=== PATIENT | female | born 1965 | race Caucasian/White ===

== ENCOUNTER → 2021-07-14 | Outpatient (CLI) | payer MEDICARE, OTHER ==
--- NOTE | 2021-07-14 15:24 | US ---
EXAMINATION TYPE: US carotid duplex BILAT DATE OF EXAM: 07/14/2021 COMPARISON: NONE CLINICAL HISTORY: I51.7 Cardiomegaly. Smoker x 40 years EXAM MEASUREMENTS: RIGHT: Peak Systolic Velocity (PSV) cm/sec ----- Right CCA: 87.9 ----- Right ICA: 84.1 ----- Right ECA: 104.3 ICA/CCA ratio: 1.0 RIGHT: End Diastole cm/sec ----- Right CCA: 32.3 ----- Right ICA: 33.6 ----- Right ECA: 26.0 LEFT: Peak Systolic Velocity (PSV) cm/sec ----- Left CCA: 82.9 ----- Left ICA: 87.9 ----- Left ECA: 128.7 ICA/CCA ratio: 1.1 LEFT: End Diastole cm/sec ----- Left CCA: 29.8 ----- Left ICA: 33.6 ----- Left ECA: 20.4 VERTEBRALS (direction of flow): Right Vertebral: Antegrade Left Vertebral: Antegrade Rhythm: Normal Abnormally elevated PSV is noted proximal Left ECA. Mild intimal wall changes are noted at bilateral carotid bifurcation. IMPRESSION: 1. Atheromatous plaquing without significant flow-limiting stenosis, nor internal carotid arteries. 2. There is some elevation of the velocity within the left external carotid artery. Criteria for Assigning % of Stenosis / Diameter reduction (Estimation based on the indirect measurements of the internal carotid artery velocities (ICA PSV). 1. Normal (no stenosis)=ICA PSV < 125 cm/s: ratio < 2.0: ICA EDV<40 cm/s. 2. Less than 50% stenosis=ICA PSV < 125 cm/s: ratio < 2.0: ICA EDV<40 cm/s. 3. 50 to 69% stenosis=ICA PSV of 125 to 230 cm/s: ration 2.0 ? 4.0: ICA EDV 40-100 cm/s. 4. Greater than 70% stenosis to near occlusion= ICA PSV > 230 cm/s: ratio > 4.0: ICA EDV > 100 cm/s. 5. Near occlusion= ICA PSV velocities may be low or undetectable: variable ratio and ICA EDV. 6. Total occlusion=unable to detect flow.
--- NOTE | 2021-07-14 19:37 | ECHOF ---
Referral Reason:I51.7 Cargiomegaly MEASUREMENTS -------- HEIGHT: 160.0 cm WEIGHT: 63.5 kg BP: RVIDd: 2.9 cm (< 3.3) IVSd: 1.0 cm (0.6 - 1.1) LVIDd: 4.5 cm (3.9 - 5.3) LVPWd: 0.9 cm (0.6 - 1.1) IVSs: 1.2 cm LVIDs: 2.9 cm LVPWs: 1.4 cm LAESV Index (A-L): 14.28 ml/m Ao Diam: 2.8 cm (2.0 - 3.7) AV Cusp: 1.4 cm (1.5 - 2.6) MV EXCURSION: 19.523 mm (> 18.000) MV EF SLOPE: 63 mm/s (70 - 150) EPSS: 0.8 cm MV E Rob: 0.57 m/s MV DecT: 235 ms MV A Rob: 0.71 m/s MV E/A Ratio: 0.80 RAP: 5.00 mmHg RVSP: 15.61 mmHg FINDINGS -------- Sinus rhythm. This was a technically adequate study. The left ventricular size is normal. Left ventricular wall thickness is normal. Overall left vent ricular systolic function is normal with, an EF between 55 - 60 %. The right ventricle is normal in size. Normal LA size by volume 22+/-6 ml/m2. The right atrial size is normal. The aortic valve is trileaflet, and appears structurally normal. No aortic stenosis or regurgitation. The mitral valve is normal. Mild mitral regurgitation is present. The tricuspid valve appears structurally normal. Mild tricuspid regurgitation present. Right vent ricular systolic pressure is normal at < 35 mmHg. There is no pulmonic regurgitation present. The aortic root size is normal. There is no pericardial effusion. CONCLUSIONS -------- 1. Overall left ventricular systolic function is normal with, an EF between 55 - 60 %. 2. Normal LA size by volume 22+/-6 ml/m2. 3. The aortic valve is trileaflet, and appears structurally normal. No aortic stenosis or regurgitati on. 4. The mitral valve is normal. 5. Mild tricuspid regurgitation present. 6. There is no pericardial effusion. LOW [employer]ER TENDER: Ira Melissa RDCS
== END | disposition home or self-care (01) ==
LOC: RADUSWWP 13:48 → MERGE 14:20
PROVIDERS: ATTEND Family Medicine
DX: I67.2 Cerebral atherosclerosis (principal)
CPT/HCPCS: 93306; 93880

== ENCOUNTER → 2022-01-23 | Outpatient (CLI) | payer MEDICARE, OTHER ==
--- NOTE | 2022-01-23 20:40 | MR ---
EXAMINATION TYPE: MR foot RT wo con DATE OF EXAM: 01/23/2022 COMPARISON: No radiographic correlation available HISTORY: 56-year-old female Pain in right foot, 4th digit pain TECHNIQUE: Multiplanar, multisequence images of the right foot were obtained without IV contrast. FINDINGS: There is intense edema with corresponding marrow replacement involving the fourth distal phalanx. Ass ociated soft tissue swelling greater along the distal aspect of the toe. No additional suspicious bone marrow replacement or marrow edema. Small effusion in the posterior tibiotalar and subtalar joints likely physiologic. Subtalar joint marcial ears aligned. Achilles tendon appears intact. There is some mild edema within the calcaneal plantar f at pad which is nonspecific. No significant thickening origin of the medial plantar fascia. There is a mild to moderate tenosynovial fluid along the flexor hallucis and flexor digitorum longus at the mid to hindfoot near the level of the knot of Ryan, probably physiologic. The Lisfranc ligament appears intact. IMPRESSION: Intense edema with corresponding low T1 signal involving the fourth distal phalanx. Associated soft t issue swelling. Suspect an occult, nondisplaced fracture given the signal changes. Radiographic corre lation recommended. If pain does not improve as expected, follow-up high-resolution, small field-of-v iew MRI can be performed.
== END | disposition home or self-care (01) ==
LOC: RADMRIMAIN 11:19
PROVIDERS: ATTEND Orthopaedic Surgery
DX: S92.504D Nondisplaced unspecified fracture of right lesser toe(s), subsequent encounter for fracture with routine healing (principal); M79.671 Pain in right foot; X58.XXXD Exposure to other specified factors, subsequent encounter

== ENCOUNTER → 2023-03-31 | Outpatient (CLI) | payer MEDICARE, OTHER ==
[2023-03-31 12:44] VITALS: BP 162/96; PULSE 90; RESP 18; TEMP 98.1
--- NOTE | 2023-03-31 14:32 | P.PAINPG ---
PQRS Measure Charge Sheet Comment: HISTORY OF PRESENT ILLNESS: 57 yr old female as a referral from Dr Schmitz presents today w severe and chronic neck pain secondary to DDD, spondylosis and facet arthropathy without myelopathy for evaluation. Pt states pain level is provoked at 7 /10 in intensity, constant, localized in the mid to lower cervical spine, sore in character w shooting pain towards the L shoulder Pain is provoked by flexion and rotation. Pain is alleviated by medications (Flexeril, Aleve), injections in the past (TPIs w Dr Jameson, MARIANN C6-7), heat, PT x 40 wks in 2020, repositioning and rest. PMH: Hyperlipidemia, MDD PSH: BL Coronary Angiogram (2022), Lumbar Surgery, Vocal Cord Surgery SH: Daily tobacco use, Daily ETOH use, No illicit drug use FH: Non contributory All: See list Meds: See list REVIEW OF ORGAN SYSTEMS: CONSTITUTIONAL: No fevers or chills. No recent weight loss. NEUROLOGICAL: + numbness and tingling along the distal extremities. No seizure disorders or headaches. MUSCULOSKELETAL: + pain PSYCHIATRIC: Denies current depression or suicidal thoughts. Physical Examinations : Constitutional : Cooperative , not in acute distress . Neurologic : Cranial nerve II to XII intact. No focal neurological deficits. Psychiatric : alert & oriented x 3. Matching mood & appropriate affect. Judgment & insight intact. Musculoskeletal : Cervical Spine Motor strength in the deltoid and biceps: Normal right side. Normal Left side Motor strength biceps and the wrist extensors: Normal right side . Normal left side Motor strength in the triceps muscle: Normal right side. Normal left side Deep tendon reflexes: Normal at the biceps. Normal at Brachioradialis. Normal at triceps Vertebral body tenderness to deep palpation over C6 Cervical facet loading test: positive bilaterally Spurling test: positive bilaterally Neck distraction test: positive bilaterally Rachel sign: positive bilaterally Lumbar spine Motor strength lower extremities ,thigh and legs 5/5 Right side , 5/5 Left side Deep tendon reflexes : Normal Knee Jerk. Normal Ankle Jerk Vertebral body tenderness over Cook Test positive Lumbar facet Loading Test: positive Right / positive Left Range of motion of the lumbar spine Flexion 30 degrees, extension 10 degrees Straight Leg Raise test: Left/ Right positive at degree Tai test: positive right / positive left. Severe tenderness over the Sacroiliac joint on the Right / Left sides Gaenslen test: positive bilaterally Seated flexion test: positive bilaterally. Sacral spine : Severe tenderness over the Sacroiliac joint: right side / left side Range of motion: Flexion of the lumbar spine <60 degrees Range of motion: Extension of the lumbar spine <20 degrees Gaenslen's Test positive Esequiel's Test positive Tai test: positive right side / left side Thigh Thrust Test Sacral Thrust Test Imaging: MRI non contrast of the cervical spine from 08/14/21 reviewed Assessment/ Plan : Cervical DDD Recommendation of PT x 6 wks re: M50.30. May return to clinic for a reevaluation. All questions answered. I have spent greater than 30 minutes on patient care today. Dr Spaulding was available by phone for the evaluation of this patient. The time was used to review the medical records including relevant urine studies and Prescription history (MAPs), review of the available imaging, evaluation and examination of the patient, coordination of care with the medical staff and if applicable referring physicians, as well as creation of the medical record PQRS Narrative: Smoking Status Current every day smoker Home Medications: Ambulatory Orders Naproxen Sodium [Aleve] 440 mg PO BID 01/02/15 Ergocalciferol [Vitamin D2 (DRISDOL)] 50,000 unit PO FR 08/18/16 Gabapentin [Neurontin] 600 mg PO BID 08/18/16 Aspirin 81 mg PO DAILY 12/30/22 Atorvastatin [Lipitor] 10 mg PO HS 12/30/22 Fish Oil/Dha/Epa [Fish Oil 1,200 mg Fish Oil] 1 each PO HS 12/30/22 Unk Albuterol Inhaler 2 puff INHALATION DIRECTED PRN 12/30/22 Unk Albuterol Nebulizer 1 packet INHALATION DIRECTED PRN 12/30/22 Unk Symbicort 1 puff INHALATION DIRECTED PRN 12/30/22 tiZANidine [Zanaflex] 2 mg PO HS PRN 12/30/22 Controlled Substance Measures - Controlled Substance Measures Is patient prescribed a controlled substance at discharge?: No
== END ==
LOC: PNWHC3 10:56
PROVIDERS: ATTEND Specialist
DX: M54.50 Low back pain, unspecified (principal); M50.30 Other cervical disc degeneration, unspecified cervical region; E78.5 Hyperlipidemia, unspecified; F17.200 Nicotine dependence, unspecified, uncomplicated; F32.9 Major depressive disorder, single episode, unspecified; Z79.82 Long term (current) use of aspirin; Z91.048 Other nonmedicinal substance allergy status; Z88.1 Allergy status to other antibiotic agents; Z88.8 Allergy status to other drugs, medicaments and biological substances
CPT/HCPCS: 99211

== ENCOUNTER → 2023-06-13 | Outpatient (CLI) | payer MEDICARE, OTHER ==
[2023-06-13 10:16] VITALS: BP 128/89; PULSE 89; RESP 15; TEMP 97.6
--- NOTE | 2023-06-13 14:15 | P.PAINPG ---
Objective - Vital Signs Vital signs: Intake & Output 06/12/23 06/13/23 06/13/23 18:59 06:59 18:59 Weight 67.132 kg PQRS Measure Charge Sheet Comment: HISTORY OF PRESENT ILLNESS: 57 yr old female presents today w severe and chronic neck pain secondary to DDD, spondylosis and facet arthropathy without myelopathy for evaluation. Pt states pain level is provoked at /10 in intensity, constant, localized in the mid to lower cervical spine, sore in character w shooting pain towards the BL shoulders, L > R Pain is provoked by flexion and rotation. Pain is alleviated by medications, injections in the past, heat, PT x wks which she is currently in, repositioning and rest. Oswestry axial pain score of Interventional procedures include BLAYNE C6-C7 x1, TPIs Medications include Aleve, Flexeril REVIEW OF ORGAN SYSTEMS: CONSTITUTIONAL: No fevers or chills. No recent weight loss. NEUROLOGICAL: + numbness and tingling along the distal extremities. No seizure disorders or headaches. MUSCULOSKELETAL: + pain PSYCHIATRIC: Denies current depression or suicidal thoughts. Physical Examinations : Constitutional : Cooperative , not in acute distress . Neurologic : Cranial nerve II to XII intact. No focal neurological deficits. Psychiatric : alert & oriented x 3. Matching mood & appropriate affect. Judgment & insight intact. Musculoskeletal : Cervical Spine Motor strength in the deltoid and biceps: Normal right side. Normal Left side Motor strength biceps and the wrist extensors: Normal right side . Normal left side Motor strength in the triceps muscle: Normal right side. Normal left side Deep tendon reflexes: Normal at the biceps. Normal at Brachioradialis. Normal at triceps Vertebral body tenderness to deep palpation Cervical facet loading test: positive bilaterally over BL C4-C5, C5-C6 Spurling test: positive bilaterally Neck distraction test: positive bilaterally Rachel sign: positive bilaterally Lumbar spine Motor strength lower extremities ,thigh and legs 5/5 Right side , 5/5 Left side Deep tendon reflexes : Normal Knee Jerk. Normal Ankle Jerk Vertebral body tenderness over Cook Test positive Lumbar facet Loading Test: positive Right / positive Left Range of motion of the lumbar spine Flexion 30 degrees, extension 10 degrees Straight Leg Raise test: Left/ Right positive at degree Tai test: positive right / positive left. Severe tenderness over the Sacroiliac joint on the Right / Left sides Gaenslen test: positive bilaterally Seated flexion test: positive bilaterally. Sacral spine : Severe tenderness over the Sacroiliac joint: right side / left side Range of motion: Flexion of the lumbar spine <60 degrees Range of motion: Extension of the lumbar spine <20 degrees Gaenslen's Test positive Esequiel's Test positive Tai test: positive right side / left side Thigh Thrust Test Sacral Thrust Test Imaging: MRI non contrast of the cervical spine from 08/14/21 reviewed Assessment/ Plan : Cervical DDD Recommendation of BL facet block of the medial branches C4-C5, C5-C6 #1. May need a series of injections, up until RFA, for optimal pain relief. Risks, benefits of procedure discussed and patient verbalized understanding. Protocol for discontinuation/continuation of medications surrounding procedure discussed. May return to clinic for a reevaluation. All questions answered. I have spent greater than 30 minutes on patient care today. Dr Spaulding was available by phone for the evaluation of this patient. The time was used to review the medical records including relevant urine studies and Prescription history (MAPs), review of the available imaging, evaluation and examination of the patient, coordination of care with the medical staff and if applicable referring physicians, as well as creation of the medical record PQRS Narrative: Smoking Status Current every day smoker Hx Alcohol Use (MH) No Home Medications: Ambulatory Orders Naproxen Sodium [Aleve] 440 mg PO BID 01/02/15 Ergocalciferol [Vitamin D2 (DRISDOL)] 50,000 unit PO FR 08/18/16 Gabapentin [Neurontin] 600 mg PO BID 08/18/16 Aspirin 81 mg PO DAILY 12/30/22 Atorvastatin [Lipitor] 10 mg PO HS 12/30/22 Fish Oil/Dha/Epa [Fish Oil 1,200 mg Fish Oil] 1 each PO HS 12/30/22 Unk Albuterol Inhaler 2 puff INHALATION DIRECTED PRN 12/30/22 Unk Albuterol Nebulizer 1 packet INHALATION DIRECTED PRN 12/30/22 Unk Symbicort 1 puff INHALATION DIRECTED PRN 12/30/22 tiZANidine [Zanaflex] 2 mg PO HS PRN 12/30/22 Controlled Substance Measures - Controlled Substance Measures Is patient prescribed a controlled substance at discharge?: No
== END ==
LOC: PNWHC3 09:45
PROVIDERS: ATTEND Specialist
DX: M50.321 Other cervical disc degeneration at C4-C5 level (principal); F17.200 Nicotine dependence, unspecified, uncomplicated; Z79.82 Long term (current) use of aspirin; Z91.048 Other nonmedicinal substance allergy status; Z88.8 Allergy status to other drugs, medicaments and biological substances; Z88.1 Allergy status to other antibiotic agents
CPT/HCPCS: 99211

== ENCOUNTER → 2023-11-14 | Outpatient (CLI) | payer MEDICARE, OTHER ==
[2023-11-14 10:34] VITALS: BP 153/92; PULSE 78; RESP 16; TEMP 98.7
--- NOTE | 2023-11-14 15:02 | P.PAINPG ---
PQRS Measure Charge Sheet Comment: A 58 yr old female presents today w severe and chronic neck pain secondary to DDD, spondylosis and facet arthropathy without myelopathy for evaluation s/p L paramedian BLAYNE C6-C7 #1. Pt states she experienced 40 % pain relief x 2 mo s/p procedure. Pt states pain level is provoked at 8 /10 in intensity, constant, localized in the mid to lower cervical spine, predominantly axial, sore in character w occasional shooting pain towards the BL shoulders, L > R . Pain is provoked by rotation and flexion. Pain is alleviated by medications, injections in the past, heat, PT x 6 wks which she ended in May 2023, medications, use of a TENS unit, repositioning and rest. Oswestry axial pain score of 27. Interventional procedures include BLAYNE C6-C7 x1, Cervical TPIs Medications include Aleve, Ibu, Zanaflex, Neurontin REVIEW OF ORGAN SYSTEMS: CONSTITUTIONAL: No fevers or chills. No recent weight loss. NEUROLOGICAL: + numbness and tingling along the distal extremities. No seizure disorders or headaches. MUSCULOSKELETAL: + pain PSYCHIATRIC: Denies current depression or suicidal thoughts. Physical Examinations : Constitutional : Cooperative , not in acute distress . Neurologic : Cranial nerve II to XII intact. No focal neurological deficits. Psychiatric : alert & oriented x 3. Matching mood & appropriate affect. Judgment & insight intact. Musculoskeletal : Cervical Spine Motor strength in the deltoid and biceps: Normal right side. Normal Left side Motor strength biceps and the wrist extensors: Normal right side . Normal left side Motor strength in the triceps muscle: Normal right side. Normal left side Deep tendon reflexes: Normal at the biceps. Normal at Brachioradialis. Normal at triceps Vertebral body tenderness to deep palpation C6 Cervical facet loading test: positive bilaterally Spurling test: positive bilaterally over C6-C7 Neck distraction test: positive bilaterally Rachel sign: positive bilaterally Lumbar spine Motor strength lower extremities ,thigh and legs 5/5 Right side , 5/5 Left side Deep tendon reflexes : Normal Knee Jerk. Normal Ankle Jerk Vertebral body tenderness over Cook Test positive Lumbar facet Loading Test: positive Right / positive Left Range of motion of the lumbar spine Flexion 30 degrees, extension 10 degrees Straight Leg Raise test: Left/ Right positive at degree Tai test: positive right / positive left. Severe tenderness over the Sacroiliac joint on the Right / Left sides Gaenslen test: positive bilaterally Seated flexion test: positive bilaterally. Sacral spine : Severe tenderness over the Sacroiliac joint: right side / left side Range of motion: Flexion of the lumbar spine <60 degrees Range of motion: Extension of the lumbar spine <20 degrees Gaenslen's Test positive Esequiel's Test positive Tai test: positive right side / left side Thigh Thrust Test Sacral Thrust Test Imaging: MRI non contrast of the cervical spine from 08/14/21 reviewed Assessment/ Plan : Cervical DDD Recommendation of follow up w Dr oCnnors to explore additional treatment options. May need a series of injections for optimal pain relief. Risks, benefits of procedure discussed and patient verbalized understanding. Protocol for discontinuation/continuation of medications surrounding procedure discussed. May return to clinic for a reevaluation. All questions answered. I have spent greater than 30 minutes on patient care today. Dr Spaulding was available by phone for the evaluation of this patient. The time was used to review the medical records including relevant urine studies and Prescription history (MAPs), review of the available imaging, evaluation and examination of the patient, coordination of care with the medical staff and if applicable referring physicians, as well as creation of the medical record PQRS Narrative: Smoking Status Current every day smoker Hx Alcohol Use (MH) No Home Medications: Ambulatory Orders Naproxen Sodium [Aleve] 440 mg PO BID 01/02/15 Ergocalciferol [Vitamin D2 (DRISDOL)] 50,000 unit PO FR 08/18/16 Gabapentin [Neurontin] 600 mg PO BID 08/18/16 Aspirin 81 mg PO DAILY 12/30/22 Atorvastatin [Lipitor] 40 mg PO HS 12/30/22 Fish Oil/Dha/Epa [Fish Oil 1,200 mg Fish Oil] 1 each PO HS 12/30/22 Unk Albuterol Inhaler 2 puff INHALATION DIRECTED PRN 12/30/22 Unk Albuterol Nebulizer 1 packet INHALATION DIRECTED PRN 12/30/22 Unk Symbicort 1 puff INHALATION DIRECTED PRN 12/30/22 tiZANidine [Zanaflex] 2 mg PO HS PRN 12/30/22 Controlled Substance Measures - Controlled Substance Measures Is patient prescribed a controlled substance at discharge?: No
== END ==
LOC: PNWHC3 09:48
PROVIDERS: ATTEND Specialist
DX: M50.30 Other cervical disc degeneration, unspecified cervical region (principal); F17.200 Nicotine dependence, unspecified, uncomplicated; Z91.048 Other nonmedicinal substance allergy status; Z88.1 Allergy status to other antibiotic agents
CPT/HCPCS: 99211

== ENCOUNTER → 2024-08-21 | Outpatient (CLI) | payer MEDICARE, OTHER ==
--- NOTE | 2024-08-21 10:27 | CT ---
EXAMINATION TYPE: CT lumbar spine wo con CT DLP: 778.9 mGycm, Automated exposure control for dose reduction was used. DATE OF EXAM: 08/21/2024 10:12 AM COMPARISON: MRI lumbar spine 04/10/2020, lumbar spine radiograph 12/08/2015, CT lumbar spine 11/12/2015. CLINICAL INDICATION:Female, 58 years old with history of M47.816 SPONDYLOSIS W/O MYELOPATHY OR RADIC M54.16; PHH, Back and Leg pain hx of spinal fusion TECHNIQUE: Multiple axial images were obtained from the midportion of T11 through the sacroiliac rosalina nts. Soft tissue and bone windows in coronal and sagittal planes were obtained and reviewed. Contrast used: none. Oral contrast used: none. FINDINGS: Alignment: There are 5 lumbar type vertebral bodies within normal alignment. Bone: Postsurgical changes from posterior lumbar fusion with bilateral pedicular screws and rods inv olving L4-L5 with laminectomy change. Disc spacer at L4-L5 appears to have moved posteriorly into the spinal canal approximately 5 to 6 mm when compared to prior CT 2014. This creates streak artifact li mits evaluation but there is suggestive at least mild effacement of the anterior thecal sac. No evide nce of acute fracture is identified. Discs: Disc height loss with endplate sclerosis and vacuum disease at L5-S1. T12-L1: No spinal canal or neural foraminal stenosis is identified. L1-L2: No spinal canal or neural foraminal stenosis is identified. L2-L3: No spinal canal or neural foraminal stenosis is identified. L3-L4: Minimal broad-based disc bulge without effacement of the anterior thecal sac. Bilateral facet joints are enlarged. No neural foraminal stenosis. L4-L5: Postsurgical changes with laminectomy and disc spacer which protrudes approximately 5 to 6 mm into the anterior right spinal canal with mild effacement of the anterior thecal sac. Bilateral facet joints are enlarged. No neuroforaminal stenosis. L5-S1: Broad-based disc bulge without significant effacement of the anterior thecal sac. Bilateral fa cet arthropathy. Mild bilateral neuroforaminal stenosis. Other: Mild atherosclerotic calcification of the aorta and its branches. Sigmoid diverticulosis. IMPRESSION: 1. Postsurgical changes from posterior lumbar fusion L4-L5 laminectomy. Disc spacer appears to have s lightly backed out approximately 5 to 6 mm with mild effacement of the anterior thecal sac when [place] red to prior CT in 2015. 2. Mild multilevel degenerative disease and facet arthropathy. [facility], , 08/21/2024 10:24 AM
--- NOTE | 2024-08-22 18:15 | MR ---
EXAMINATION TYPE: MR lumbar spine wo con DATE OF EXAM: 08/21/2024 11:19 AM COMPARISON: 08/02/2024, 08/21/2024. CLINICAL INDICATION: Female, 58 years old with history of M47.816 SPONDYLOSIS W/O MYELOPATHY OR RADI CM54.16; PHH, Pain / Numbness that travels mostly down the left side x10 years TECHNIQUE: Multi planar, multi sequence imaging was performed utilizing: T1-weighted, T2-weighted, a nd turbo inversion recovery imaging of the lumbar spine. IV Contrast: cc . (None if empty) FINDINGS: Alignment: The lumbar vertebral bodies have preserved heights and alignment. Cord: The conus medullaris and the distal spinal cord appear unremarkable with regards to their signa l intensity and morphology. Bones/Discs: Postsurgical changes with hardware L4 and L5 with discectomy at L4-L5. Mild degeneration changes throughout the spine with osteophyte formation and facet joint arthropathy. Intervertebral d isc signal is maintained. No abnormal inversion recovery signal to suggest bony edema. T12-L1: No evidence of significant spinal canal stenosis or neural foraminal stenosis. L1-L2: No evidence of significant spinal canal stenosis or neural foraminal stenosis. L2-L3: No evidence of significant spinal canal stenosis or neural foraminal stenosis. L3-L4: No evidence of significant spinal canal stenosis or neural foraminal stenosis. L4-L5: Discectomy changes with disc prostheses slightly extending into the thecal sac. No Significant spinal canal or neural foraminal stenosis. There is is facet joint arthropathy mild to moderate bila teral neural foraminal stenosis. L5-S1: Susceptibility artifact limits evaluation at this level. The spinal canal and neural foramen a ppear patent. No significant spinal canal or neural foraminal stenosis in the remainder of the visualized levels. Other findings: None. IMPRESSION: 1. No definitive evidence of disc herniation or significant spinal canal stenosis. 2. Multilevel disc degeneration with associated osteoarthritic changes. 3. L4-L5 disc prostheses slightly extends into the thecal sac. No evidence for significant spinal ca nal or neural foraminal stenosis. [facility], , 08/22/2024 6:13 PM
== END | disposition home or self-care (01) ==
LOC: RADCTMAIN 09:37
PROVIDERS: ATTEND Orthopaedic Surgery
CPT/HCPCS: 72131; 72148

== ENCOUNTER → 2024-08-23 | Outpatient (CLI) | payer MEDICARE, OTHER ==
--- NOTE | 2024-08-23 10:33 | US ---
EXAMINATION TYPE: US gallbladder DATE OF EXAM: 08/23/2024 COMPARISON: NONE CLINICAL INDICATION: Female, 58 years old with history of R1011 RIGHT UPPER QUAD PAIN; RUQ pain TECHNIQUE: Grayscale and color Doppler imaging of the right upper quadrant was performed. FINDINGS: EXAM MEASUREMENTS: Liver Length: 17.1 cm Gallbladder Wall: .2 cm CBD: .8 cm Right Kidney: 11 x 4.0 x 3.7 cm FORGE HELPER NOTES: Pancreas: Tail obscured by overlying bowel gas Liver: Increased attenuation Gallbladder: No stones seen Evidence for sonographic Hebert's sign: No CBD: Dilated Right Kidney: No hydronephrosis or masses seen The visualized portions of the pancreas are within normal limits. The tail is obscured by overlying b owel gas. Diffuse increased echogenicity of the liver. This appearance limits evaluation. No gross ev idence of focal lesion. Noncirrhotic morphology. No gallstones, wall thickening or surrounding fluid. Negative sonographic Hebert sign. Minimally dilated common bile duct. Right kidney demonstrate no hy dronephrosis, shadowing calculi, or solid mass. IMPRESSION: 1. Minimally dilated common bile duct measuring up to 8 mm. Correlation with bili obstructive labs is recommended. Consider further evaluation MRCP as clinically indicated. 2. Hepatic steatosis. [facility], , 08/23/2024 10:31 AM
[2024-08-23 15:58] LABS: ALT 50 U/L (8-44); AST 40 U/L (13-35); Chol/HDL Ratio 3.61 Ratio; LDL Cholesterol,Calculated 185.7 mg/dL (0.0-131.0); VLDL Calculation 16.72 mg/dL (5.00-40.00)
== END | disposition home or self-care (01) ==
LOC: RADUSWWP 09:32
PROVIDERS: ATTEND Surgery Plastic and Reconstructive Surgery
CPT/HCPCS: 76705; 80061; 84450; 84460

== ENCOUNTER 2024-09-06 07:39 | Day surgery (SDC) | payer MEDICARE, OTHER ==
--- NOTE | 2024-09-06 07:34 | P.GSHP ---
History of Present Illness H&P Date: 09/06/24 CHIEF COMPLAINT: GERD and colon screen HISTORY OF PRESENT ILLNESS: The patient is a 58-year-old female who presents with gastroesophageal reflux disease and need for colon screen. Upper and lower endoscopy were offered for further evaluation and management. PAST MEDICAL HISTORY: Please see list. PAST SURGICAL HISTORY: Please see list. MEDICATIONS: Please see list. ALLERGIES: Please see list. SOCIAL HISTORY: No illicit drug use FAMILY HISTORY: No reports of Crohn disease or ulcerative colitis. REVIEW OF ORGAN SYSTEMS: CONSTITUTIONAL: No reports of fevers or chills. GI: Denies any blood in stools or constipation. PHYSICAL EXAM: VITAL SIGNS: Stable GENERAL: Well-developed pleasant in no acute distress. HEENT: No scleral icterus. Extraocular movements grossly intact. Moist buccal mucosa. NECK: Supple without lymphadenopathy. CHEST: Unlabored respirations. Equal bilateral excursions. CARDIOVASCULAR: Regular rate and rhythm. Distal 2+ pulses. ABDOMEN: Soft, nondistended. MUSCULOSKELETAL: No clubbing, cyanosis, or edema. ASSESSMENT: 1. Gastroesophageal reflux disease 2. Colon screen. PLAN: 1. Recommend proceeding with an upper and lower endoscopy Past Medical History Past Medical History: COPD, Diabetes Mellitus, GERD/Reflux, Hyperlipidemia, Hypertension, Osteoarthritis (OA) Additional Past Medical History / Comment(s): Enlarged heart since she was 18yrs old.SOB with exertion since bronchitis in 09/14. Has recent stress test due to SOB that was abnormal. back pain, neuropathy in feet , rt foot drop. . Covid 10/13. diet controlled diabetes. just prescribed new med to "relax" her heart. History of Any Multi-Drug Resistant Organisms: None Reported Past Surgical History: Back Surgery, Tubal Ligation, Uterine Ablation Additional Past Surgical History / Comment(s): vocal cords, cage and rods and screws in lumbar area. screw in rt 4th toe. hand surgery, Past Anesthesia/Blood Transfusion Reactions: No Reported Reaction Additional Past Anesthesia/Blood Transfusion Reaction / Comment(s): no blood transfusions Smoking Status: Current every day smoker - Past Family History Father Family Medical History: Cancer Additional Family Medical History / Comment(s): bypass surgery. [address] way. lung cancer.- led to bones and brain. Mother Family Medical History: Congestive Heart Failure (CHF), Pulmonary Embolus Medications and Allergies Home Medications Medication Instructions Recorded Confirmed Type Naproxen Sodium [Aleve] 440 mg PO BID 01/02/15 09/04/24 History Atorvastatin [Lipitor] 80 mg PO HS 12/30/22 09/04/24 History Fish Oil/Dha/Epa [Fish Oil 1,200 1 each PO HS 12/30/22 09/04/24 History mg Fish Oil] tiZANidine [Zanaflex] 2 mg PO HS PRN 12/30/22 09/04/24 History Fluticasone/Umeclidin/Vilanter 1 puff INHALATION DAILY 09/04/24 09/04/24 History [Cliftonleklever Ellipta 100-62.5-25] lisinopriL [Prinivil] 10 mg PO HS 09/04/24 09/04/24 History Allergies Allergy/AdvReac Type Severity Reaction Status Date / Time adhesive tape Allergy redness Verified 09/04/24 10:14 levofloxacin [From Levaquin] Allergy Itching Verified 09/04/24 10:14 zolpidem tartrate AdvReac Hallucinati Verified 09/04/24 10:14 [From Ambien] ons
[~2024-09-06 07:39] MED LIST: LACTATED RINGERS 1,000 ML IV SCH; LIDOCAINE 1% (10MG/ML) FOR IV START INTRADERMA PRN
[2024-09-06 08:10] VITALS: TEMP 97.9
[2024-09-06] MEDS: LACTATED RINGERS 1,000 ML IV ONE (08:21)
[2024-09-06] MEDS ORDERED: LIDOCAINE 1% INJ 10MG/ML (20 ML MDV) ONE (08:23)
[2024-09-06] MEDS ORDERED: PROPOFOL 10 MG/ML 20 ML VIAL IV ONE (08:23)
[2024-09-06 08:38] LABS: Glucose,Whole Blood 95 mg/dL (70-110)
--- NOTE | 2024-09-06 08:38 | P.PCN ---
Date of Procedure: 09/06/24 Description of Procedure: PREOPERATIVE DIAGNOSIS: Gastroesophageal reflux disease. Dysphagia POSTOPERATIVE DIAGNOSIS: Gastroesophageal reflux disease. Gastritis with bleeding Diaphragmatic hiatal hernia OPERATION: Esophagogastroduodenoscopy with biopsies along esophagus, antrum and duodenum SURGEON: Carrol Velez MD ANESTHESIA: MAC. INDICATIONS: The patient is a 58-year-old female who presents with reflux disease. Benefits and risks of the procedure were described. Informed consent was obtained. DESCRIPTION: The patient was brought into the endoscopy suite and laid in the left lateral decubitus position. An Olympus gastroscope was passed along the posterior oropharynx down to the distal esophagus where the squamocolumnar junction was encountered at 37 cm from the incisors. The stomach was entered and no bile reflux was found. Additional findings are listed below. Biopsies with cold forceps were obtained of the antrum. The first through third portion of the duodenum was examined. Retroflexion of the scope confirmed Hill grade 3 lower esophageal valve. The squamocolumnar junction demonstrated LA grade B erosive esophagitis. The stomach was desufflated. The patient tolerated the procedure well. FINDINGS: Squamocolumnar junction 37 cm from the incisors. Diaphragmatic hiatus at 40 cm. Hiatal hernia, 3 cm Hill grade 3 lower esophageal valve. LA grade B erosive esophagitis. Biopsies obtained Biopsies obtained of the duodenum. Chronic gastritis with bleeding with biopsies obtained. RECOMMENDATIONS: Upper endoscopy as needed.
--- NOTE | 2024-09-06 09:16 | P.PCN ---
Date of Procedure: 09/06/24 Description of Procedure: PREOPERATIVE DIAGNOSIS: Colonoscopy screening POSTOPERATIVE DIAGNOSIS: Tubular adenoma rectum Sigmoid diverticulosis OPERATION: Colonoscopy to the ileocecal valve and appendiceal orifice, cecum Colonoscopy with hot snare polypectomy SURGEON: Carrol Velez MD. ANESTHESIA: MAC. INDICATIONS: The patient is an 58-year-old female who presents for colonoscopy screening. Last colonoscopy 5 years. Benefits and risks were described and informed consent was obtained. DESCRIPTION OF PROCEDURE: The patient had undergone Sutab prep. The patient had been brought into the operating room and laid in the left lateral decubitus position. After adequate intravenous sedation, the rectum was examined with 2% lidocaine jelly. The prostate was unremarkable. No large external hemorrhoids were encountered. The rectal tone was within normal limits. No lesions were palpated in the rectal vault. An Olympus colonoscope was advanced until the cecum, ileocecal valve and appendiceal orifice were clearly viewed. The prep was good. Sigmoid diverticulosis was encountered. Colonic polyps were found and removed. No evidence of focal colitis was found. Retroflexion of the scope demonstrated grade 1 internal hemorrhoids without active bleeding or inflammation. The colon was desufflated. The patient had tolerated the procedure well. Withdrawal time was over 6 minutes. FINDINGS: Aronchick preparation quality scale 2 (1-5) Internal hemorrhoids, grade 1 External hemorrhoids, grade 1 No arteriovenous malformations. Sigmoid diverticulosis Removal of 1 polyps: - Snare polypectomy 12 cm from the anal verge, 5 mm tubulovillous adenoma, rectum No focal colitis. RECOMMENDATIONS: Repeat colonoscopy in 3 years, 2026 Plan - Discharge Summary Discharge Rx Participant: No New Discharge Prescriptions: Continue Naproxen Sodium [Aleve] 440 mg PO BID Fish Oil/Dha/Epa [Fish Oil 1,200 mg Fish Oil] 1 each PO HS Atorvastatin [Lipitor] 80 mg PO HS tiZANidine [Zanaflex] 2 mg PO HS PRN PRN Reason: Muscle Spasm lisinopriL [Prinivil] 10 mg PO HS Fluticasone/Umeclidin/Vilanter [Trelegy Ellipta 100-62.5-25] 1 puff INHALATION DAILY Discharge Medication List Naproxen Sodium [Aleve] 440 mg PO BID 01/02/15 [History] Atorvastatin [Lipitor] 80 mg PO HS 12/30/22 [History] Fish Oil/Dha/Epa [Fish Oil 1,200 mg Fish Oil] 1 each PO HS 12/30/22 [History] tiZANidine [Zanaflex] 2 mg PO HS PRN 12/30/22 [History] Fluticasone/Umeclidin/Vilanter [Trelegy Ellipta 100-62.5-25] 1 puff INHALATION DAILY 09/04/24 [History] lisinopriL [Prinivil] 10 mg PO HS 09/04/24 [History] Follow up Appointment(s)/Referral(s): Carrol Velez MD [STAFF PHYSICIAN] - 09/25/24 11:00 am Patient Instructions/Handouts: *Surgery [facility] - (Anesthesia) Discharge Instructions Outpatient Surgery, Diverticulosis Diet (GEN), Colorectal Polyps (GEN), Hiatal Hernia (ED) Activity/Diet/Wound Care/Special Instructions: Repeat colonoscopy 3 years, 2026 Discharge Disposition: HOME SELF-CARE
[2024-09-06 09:39] VITALS: BP 117/77; PULSE 72; RESP 18
== END 2024-09-06 10:26 | disposition home or self-care (01) ==
LOC: ORWHC2ENDO 07:39
PROVIDERS: ATTEND Surgery Plastic and Reconstructive Surgery
DX: Z12.11 Encounter for screening for malignant neoplasm of colon (principal); K44.9 Diaphragmatic hernia without obstruction or gangrene; K29.51 Unspecified chronic gastritis with bleeding; K57.30 Diverticulosis of large intestine without perforation or abscess without bleeding; K21.00 Gastro-esophageal reflux disease with esophagitis, without bleeding; J44.9 Chronic obstructive pulmonary disease, unspecified; E11.40 Type 2 diabetes mellitus with diabetic neuropathy, unspecified; I10 Essential (primary) hypertension; F40.9 Phobic anxiety disorder, unspecified; K62.1 Rectal polyp; M19.90 Unspecified osteoarthritis, unspecified site; E78.5 Hyperlipidemia, unspecified; I42.9 Cardiomyopathy, unspecified; E11.9 Type 2 diabetes mellitus without complications; F17.210 Nicotine dependence, cigarettes, uncomplicated; Z86.16 Personal history of COVID-19; Z88.1 Allergy status to other antibiotic agents; Z88.8 Allergy status to other drugs, medicaments and biological substances; Z98.51 Tubal ligation status; Z98.890 Other specified postprocedural states; Z79.1 Long term (current) use of non-steroidal anti-inflammatories (NSAID); Z79.899 Other long term (current) drug therapy
CPT/HCPCS: 88305; 45385; 43239; J2003; J2704

== ENCOUNTER → 2025-05-15 | Outpatient (CLI) | payer MEDICARE, OTHER ==
--- NOTE | 2025-05-21 21:59 | MR ---
MR lumbar spine wo con: 05/15/2025 8:43 AM INDICATION: Patient age:Female; 59 years old; Reason for study: M54.59 other low back pain; PHH. COMPARISON: Multiple MR examinations of the lumbar spine including 04/09/2020 and 08/21/2024. TECHNIQUE: Multi planar, multi sequence imaging was performed utilizing: T1-weighted, T2-weighted, a nd turbo inversion recovery imaging of the lumbar spine. No gadolinium was given. FINDINGS: The conus medullaris, which terminates at L1, and the distal spinal cord appear unremarkable in regar ds to their signal intensity and morphology. The lumbar vertebral bodies have preserved heights and a lignment. Unchanged posterior fusion with hardware associated susceptibility artifact L4-L5 with di scectomy and interspacing device at the respective intervertebral level. Multilevel degenerative disc disease is noted and most pronounced at the L5-S1 level. Otherwise disc signal is maintained. . T12-L1: No significant disc pathology is identified. No significant spinal canal or neural foraminal stenoses. L1-L2: No significant disc pathology is identified. No significant spinal canal or neural foraminal s tenoses. L2-L3: No significant disc pathology is identified. No significant spinal canal or neural foraminal s tenoses. L3-L4: No significant disc pathology is identified. No significant spinal canal or neural foraminal s tenoses. L4-L5: Discectomy changes with similar posterior right eccentric positioning of the spacer device, wi th again subtle though stable protrusion into the ventral thecal sac. L5-S1: Unchanged marked loss of disc space height and disc desiccation with Modic endplate changes. N o significant spinal canal stenosis. The right exiting L5 nerve root is seen in coaster proximity to the hardware versus left, however relationship is obscured due to extent of artifact. Other findings: Unchanged right renal parapelvic cyst. IMPRESSION: 1. Unchanged L4-L5 fusion and discectomy. 2. No definitive evidence of new disc herniation or significant spinal canal stenosis. 3. Similar disc degeneration and associated osteoarthritic changes, worst at L5-S1. [facility], Workstation: [id number], 05/21/2025 9:57 PM
== END | disposition home or self-care (01) ==
LOC: RADMRIMAIN 07:50
PROVIDERS: ATTEND Orthopaedic Surgery Orthopaedic Surgery of the Spine
DX: M51.372 Other intervertebral disc degeneration, lumbosacral region with discogenic back pain and lower extremity pain (principal); M43.26 Fusion of spine, lumbar region
CPT/HCPCS: 72148